=== PATIENT | male | born 1955 | race Caucasian/White ===

== ENCOUNTER 2016-10-21 10:17 | Outpatient (CLI) | payer OTHER ==
--- NOTE | 2016-10-21 15:26 | DIAGNOSTIC IMAGING REPORT ---
PROCEDURE: XR SHOULDER INJECTION (PRE MR) INDICATION: CHRONIC RT SHOULDER PAIN TECHNIQUE: The patient was advised of the usual risks and complications including infection, bleeding and allergy. Supine RPO position. Following sterile preparation and 1% lidocaine anesthetic, fluoroscopic guidance (3.0 minutes, 545.21 mGy) was utilized to place a 22-gauge spinal needle into the ventral right glenohumeral joint. A 10.1 mL solution (2.5 mL Isovue 200, 2.5 mL 1% lidocaine, 2.5 mL 0.5% Marcaine, 2.5 mL normal saline, 0.1 mL gadolinium) was infused. Subsequently, 2 mL 40 mg/mL Kenalog was infused and the needle was withdrawn. COMPARISON: None. FINDINGS: Six AP views in neutral, internal and external rotation. Confirmation of intraarticular injection. There mild degenerate changes of the acromion and right acromioclavicular joint. Arthrogram is within normal limits (small amount of air within the joint). The patient tolerated the procedure reasonably well and was transferred to MRI in satisfactory condition with instructions to resume routine activity the following day, and to call for any untoward symptoms (increasing pain/swelling). IMPRESSION: 1. Successful fluoroscopically guided diagnostic/therapeutic injection of the right glenohumeral joint (pre MRI). 2. Negative arthrogram of the shoulder. 3. MR arthrography is pending.
--- NOTE | 2016-10-21 16:45 | DIAGNOSTIC IMAGING REPORT ---
PROCEDURE: MR UPPER EXT JOINT W/CONT-RT (MR arthrogram). INDICATION: Increasing chronic right shoulder pain. TECHNIQUE: Intraarticular contrast/gadolinium injected earlier in the day. T1, FAT-SAT PD, and FAT-SAT T1 sagittal oblique images. PD, FAT-SAT PD, and FAT-SAT T1 coronal oblique images. T1, FAT-SAT T1, and FAT-SAT PD axial images. COMPARISON: Comparison is made to conventional arthrogram earlier in the day. FINDINGS: There is mild to moderate caudal and positive angulation of type 2 acromion, and moderate arthritic changes right acromioclavicular joint. These changes result in moderate impingement. There is moderate insertion tendinosis of the posterior lateral rotator cuff (infraspinatus segment), but no evidence of rotator cuff tear. There is moderate to marked coracoid impingement (6 mm). This is associated with atrophic tendinosis of the ventral rotator cuff (upper subscapularis segment) with partial thickness tear. No evidence of full-thickness tear. Biceps tendon is intact. There is a tear of the anterior superior cartilaginous glenoid labrum with probable tear of the anterior inferior cartilaginous labrum. There is a type 3 anterior capsular attachment (variant). Superior and inferior glenohumeral ligaments are normal. Middle glenohumeral ligament appears atrophic or absent. IMPRESSION: 1. 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 2. Moderate tendinosis of the posterior lateral rotator cuff (infraspinatus segment) without tear. 3. Moderate to marked coracoid impingement (6 mm). 4. Moderate atrophic tendinosis of the ventral rotator cuff (upper scapular segment) with partial thickness tear. 5. No evidence of full-thickness rotator cuff tear. 6. Findings suggest tears of the anterior superior and anterior inferior cartilaginous labrum. 7. Type 3 anterior capsular attachment (normal variant). 8. Middle glenohumeral joint is not identified (congenitally absent versus prior injury).
== END 2016-10-21 23:00 ==
LOC: XR SRH 10:17
DX: M75.41 Impingement syndrome of right shoulder (principal); M75.101 Unspecified rotator cuff tear or rupture of right shoulder, not specified as traumatic; R93.7 Abnormal findings on diagnostic imaging of other parts of musculoskeletal system